=== PATIENT | male | born 1955 | race Two or more races ===

== ENCOUNTER 2019-04-05 19:19 | Emergency (ER) | payer MEDICARE, OTHER ==
[~2019-04-05] VITALS: Ht 177.8 cm; Wt 101.6 kg
--- NOTE | 2019-04-05 19:30 | NUR ---
PT PASHA FROM STREET C/O R HAND PAIN S/P TRIP AND FALL. PT ADMITS TO DRINKING TODAY. PER RA, PT LIVES AT [facility] AND WALKED OUT SIDE TO DRINK. PT AAOX3, DOZING INTERMITTENTLY. VITAL SIGNS STABLE. NO ACUTE DISTRESS NOTED AT THIS TIME. WILL CONTINUE TO MONITOR.
--- NOTE | 2019-04-05 22:20 | NUR ---
PT ABLE TO AMBULATE TO RESTROOM WITH WALKER. STEADY GAIT
--- NOTE | 2019-04-05 23:03 | NUR ---
CALLED [facility] AND SPOKE WITH JOVANNI. INFORMED PT WILL RETURN TO FACILITY.
--- NOTE | 2019-04-05 23:03 | NUR ---
CALLED JOVANNI XIE 30 MIN. TRIP NUMBER [id number]
--- NOTE | 2019-04-05 23:28 | NUR ---
Pt aaox4. No acute distress noted at this time. Vital signs stable. Pt medically cleared to return to facilty. Patient discharged to home in stable condition. Written and verbal after care instructions given. Patient verbalizes understanding of instruction. Pt ambulatory with a steady gait
--- NOTE | 2019-04-05 23:28 | NUR ---
GAVE REPORT TO JOVANNI FOR TRANSPORTATION [facility]
[2019-04-05 23:31] VITALS: BP 124/76
== END 2019-04-05 23:31 | disposition home or self-care (01) ==
LOC: ER 19:19
DX: F10.129 Alcohol abuse with intoxication, unspecified (principal); R56.9 Unspecified convulsions; F32.9 Major depressive disorder, single episode, unspecified; I10 Essential (primary) hypertension; R47.81 Slurred speech; Y90.9 Presence of alcohol in blood, level not specified; Z95.5 Presence of coronary angioplasty implant and graft; Z59.0 Homelessness